=== PATIENT | male | born 1975 | race Caucasian/White ===

== ENCOUNTER → 2017-12-09 19:22 | Outpatient (CLI) | payer OTHER | END | disposition home or self-care (01) | LOC: LAB 19:22 | DX: A49.2 Hemophilus influenzae infection, unspecified site (principal); D50.8 Other iron deficiency anemias; D51.8 Other vitamin B12 deficiency anemias; E03.8 Other specified hypothyroidism ==

== ENCOUNTER 2018-01-15 10:37 | Outpatient (CLI) | payer OTHER | END 2018-01-15 10:46 | disposition home or self-care (01) | LOC: SONOGRAMA 10:37 | DX: E03.8 Other specified hypothyroidism (principal) ==

== ENCOUNTER 2018-06-15 07:27 | Outpatient (CLI) | payer OTHER | END 2018-06-15 09:05 | disposition home or self-care (01) | LOC: NUCLEAR 07:27 | DX: K80.20 Calculus of gallbladder without cholecystitis without obstruction (principal); R94.5 Abnormal results of liver function studies; E03.8 Other specified hypothyroidism; N43.2 Other hydrocele; I86.1 Scrotal varices; D51.3 Other dietary vitamin B12 deficiency anemia | CPT/HCPCS: A9537; 78227 ==

== ENCOUNTER 2018-06-27 09:06 | Outpatient (CLI) | payer OTHER | END 2018-06-27 09:08 | disposition home or self-care (01) | LOC: SONOGRAMA 09:06 → MAMO-SONO 09:45 | DX: K80.20 Calculus of gallbladder without cholecystitis without obstruction (principal); R94.5 Abnormal results of liver function studies; D51.3 Other dietary vitamin B12 deficiency anemia; E03.8 Other specified hypothyroidism; N43.2 Other hydrocele; I86.1 Scrotal varices ==

== ENCOUNTER 2018-06-27 10:01 | Outpatient (CLI) | payer OTHER | END 2018-06-27 10:16 | disposition home or self-care (01) | LOC: LAB 10:01 | DX: D51.3 Other dietary vitamin B12 deficiency anemia (principal); R94.5 Abnormal results of liver function studies; E03.8 Other specified hypothyroidism; N43.2 Other hydrocele; I86.1 Scrotal varices; K80.20 Calculus of gallbladder without cholecystitis without obstruction; D50.8 Other iron deficiency anemias; D51.8 Other vitamin B12 deficiency anemias; I10 Essential (primary) hypertension; D68.8 Other specified coagulation defects; N39.0 Urinary tract infection, site not specified ==

== ENCOUNTER → 2018-07-13 | Outpatient (CLI) | payer OTHER ==
[~2018-07-13] MED LIST: LEVO-T25 MCG PO; METOCLOPRAMIDE10 MG PO; PROTONIX40 MG PO; ULTRACET PO; ZANTAC150 MG PO
== END | disposition home or self-care (01) ==
LOC: RAD 12:03
DX: K81.1 Chronic cholecystitis (principal); K80.10 Calculus of gallbladder with chronic cholecystitis without obstruction

== ENCOUNTER 2018-07-22 04:30 | Day surgery (SDC) | payer OTHER ==
[~2018-07-22] VITALS: Ht 167.6 cm; Wt 79.4 kg
[~2018-07-22 04:30] MED LIST changes: -METOCLOPRAMIDE10 MG PO; -ULTRACET PO
[2018-07-22] MEDS ORDERED: PROTONIX40 MG PO (09:38)
[2018-07-22] MEDS ORDERED: ULTRACET PO (09:38)
[2018-07-22] MEDS ORDERED: METOCLOPRAMIDE10 MG PO (09:38)
== END 2018-07-22 11:30 | disposition home or self-care (01) ==
LOC: CIR.AMB 04:30
DX: K80.10 Calculus of gallbladder with chronic cholecystitis without obstruction (principal)

== ENCOUNTER 2018-09-29 15:46 | Outpatient (CLI) | payer OTHER ==
[~2018-09-29 15:46] MED LIST changes: +METOCLOPRAMIDE10 MG PO; +ULTRACET PO
== END 2018-09-29 16:02 | disposition home or self-care (01) ==
LOC: LAB 15:46
DX: D50.0 Iron deficiency anemia secondary to blood loss (chronic) (principal); I10 Essential (primary) hypertension; E13.8 Other specified diabetes mellitus with unspecified complications; A49.2 Hemophilus influenzae infection, unspecified site; J11.1 Influenza due to unidentified influenza virus with other respiratory manifestations

== ENCOUNTER 2018-11-17 18:52 | Outpatient (CLI) | payer OTHER | END 2018-11-17 19:20 | disposition home or self-care (01) | LOC: LAB 18:52 | DX: E03.8 Other specified hypothyroidism (principal); D51.3 Other dietary vitamin B12 deficiency anemia; R94.5 Abnormal results of liver function studies; N43.2 Other hydrocele; I86.1 Scrotal varices; K80.20 Calculus of gallbladder without cholecystitis without obstruction; A49.2 Hemophilus influenzae infection, unspecified site; Z11.3 Encounter for screening for infections with a predominantly sexual mode of transmission; A53.9 Syphilis, unspecified; A74.89 Other chlamydial diseases; A54.89 Other gonococcal infections ==

== ENCOUNTER 2019-02-22 14:13 | Outpatient (CLI) | payer OTHER | END 2019-02-22 14:20 | disposition home or self-care (01) | LOC: LAB 14:13 | DX: E03.8 Other specified hypothyroidism (principal); D51.3 Other dietary vitamin B12 deficiency anemia; R94.5 Abnormal results of liver function studies; N43.2 Other hydrocele; I86.1 Scrotal varices; K80.20 Calculus of gallbladder without cholecystitis without obstruction; A49.2 Hemophilus influenzae infection, unspecified site; C90.00 Multiple myeloma not having achieved remission; D50.8 Other iron deficiency anemias; I10 Essential (primary) hypertension; M32.9 Systemic lupus erythematosus, unspecified; D47.2 Monoclonal gammopathy ==

== ENCOUNTER 2019-02-26 14:36 | Outpatient (CLI) | payer OTHER | END 2019-02-26 15:00 | disposition home or self-care (01) | LOC: LAB 14:36 | DX: E03.8 Other specified hypothyroidism (principal); D51.3 Other dietary vitamin B12 deficiency anemia; R94.5 Abnormal results of liver function studies; N43.2 Other hydrocele; I86.1 Scrotal varices; K80.20 Calculus of gallbladder without cholecystitis without obstruction; A49.2 Hemophilus influenzae infection, unspecified site; M15.0 Primary generalized (osteo)arthritis; K75.4 Autoimmune hepatitis; M06.9 Rheumatoid arthritis, unspecified; M25.00 Hemarthrosis, unspecified joint; D51.1 Vitamin B12 deficiency anemia due to selective vitamin B12 malabsorption with proteinuria; D51.0 Vitamin B12 deficiency anemia due to intrinsic factor deficiency; M32.8 Other forms of systemic lupus erythematosus ==

== ENCOUNTER 2019-05-03 09:15 | Outpatient (CLI) | payer OTHER | END 2019-05-03 09:20 | disposition home or self-care (01) | LOC: LAB 09:15 | DX: R74.0 Nonspecific elevation of levels of transaminase and lactic acid dehydrogenase [LDH] (principal) ==

== ENCOUNTER 2019-05-05 09:26 | Outpatient (CLI) | payer OTHER | END 2019-05-05 09:48 | disposition home or self-care (01) | LOC: SONOGRAMA 09:26 → MAMO-SONO 09:45 → SONOGRAMA 09:48 | DX: R74.0 Nonspecific elevation of levels of transaminase and lactic acid dehydrogenase [LDH] (principal); Z12.11 Encounter for screening for malignant neoplasm of colon ==